=== PATIENT | male | born 1960 | race Caucasian/White ===

== ENCOUNTER → 2017-02-21 | Outpatient (CLI) | payer OTHER, MEDICARE ==
[~2017-02-21] MED LIST: ALBUTEROL2 PUFFS/17 IN; GABAPENTIN300 MG PO; MEDROL 4MG. DOSE4 MG PO; TESSALON PERLE100 MG PO; ZITHROMAX Z PA250 MG PO
[2017-02-21 18:55] LABS: AMPHETAMINES/METAMPHETAMINES NEGATIVE ng/mL (<1000)
[2017-02-28 03:37] LABS: Codeine Negative (Cutoff=100); Hydrocodone Positive (.); Hydromorphone Negative (Cutoff=100); Morphine Negative (Cutoff=100); Opiates Positive (.)
== END ==
LOC: LAB 16:28
PROVIDERS: Physical Medicine & Rehabilitation
DX: Z79.899 Other long term (current) drug therapy (principal)